=== PATIENT | female | born 1980 | race Caucasian/White ===

== ENCOUNTER → 2023-08-05 08:21 | Outpatient (CLI) | payer BC, SELFPAY ==
--- NOTE | ~2023-08-05 | MM_ITS ---
EXAMINATION: MM screening [facility] BI w bisi HISTORY: Screening mammogram TECHNIQUE: Craniocaudal and mediolateral oblique 3-D tomosynthesis images were obtained and synthetic 2-D images were generated. CAD analysis was submitted and interpreted. COMPARISON: No prior mammogram is available for comparison at this institution. BREAST PARENCHYMAL COMPOSITION: There are scattered areas of fibroglandular density. FINDINGS: There is a circumscribed low-density 5 mm opacity in the central right breast at mid depth. Diagnostic right mammogram and right breast ultrasound examination are recommended. Focal asymmetric density in the lower inner quadrant of the left breast. Diagnostic left mammogram is recommended with ultrasound if required. IMPRESSION: 1. Bilateral asymmetric densities 2. Bilateral diagnostic mammography is recommended, with ultrasound if required BI-RADS Category 0: Incomplete: Needs additional imaging evaluation. Reviewed, dictated and finalized at location A. 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
== END ==
PROVIDERS: PCP Nurse Practitioner Obstetrics & Gynecology; Visit Provider Nurse Practitioner Obstetrics & Gynecology
DX: Z12.31 Encounter for screening mammogram for malignant neoplasm of breast (principal); R92.8 Other abnormal and inconclusive findings on diagnostic imaging of breast
CPT/HCPCS: 77063; 77067

== ENCOUNTER → 2023-10-17 08:18 | Outpatient (CLI) | payer BC, SELFPAY ==
--- NOTE | ~2023-10-17 | MMUS_ITS ---
EXAMINATION: MM diagnostic [facility] BI w bisi, US breast LT limited HISTORY: Bilateral breast asymmetries on screening mammogram TECHNIQUE: Additional 3-D tomosynthesis images of the breasts were performed and synthetic 2-D images were generated. CAD analysis was submitted and interpreted. High resolution limited left breast ultr asound was performed. COMPARISON: 08/05/2023 BREAST PARENCHYMAL COMPOSITION: There are scattered areas of fibroglandular density. FINDINGS: MAMMOGRAPHIC FINDINGS: Right breast: The previously described asymmetry of the right breast is no longer evident. Left breast: An asymmetry is present in the middle third of the lower left breast at the 7:00 locatio n, 10 cm from the nipple on the craniocaudal view which appears to have slightly increased in size si nce the comparison examination. ULTRASOUND: There is no evidence of focal abnormal solid or cystic mass in the vicinity of the mammographic findi ng in question in the left breast. IMPRESSION: 1. Persistent asymmetry of the left breast with possible increase. 2. Stereotactic biopsy is recommended. BI-RADS category 4, suspicious findings. Reviewed, dictated and finalized at location A. 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 Persistent asymmetry of the left breast with possible increase. 2. Stereotactic biopsy is recommended. BI-RADS category 4, suspicious findings.
== END ==
PROVIDERS: PCP Nurse Practitioner Obstetrics & Gynecology; Visit Provider Nurse Practitioner Obstetrics & Gynecology
DX: R92.8 Other abnormal and inconclusive findings on diagnostic imaging of breast (principal)
CPT/HCPCS: 76642; 77062; 77066; G0279

== ENCOUNTER 2023-12-06 12:26 | Outpatient (CLI) | payer BC, SELFPAY ==
--- NOTE | ~2023-12-06 | MM_ITS ---
MM consultation DATE: 12/06/2023 14:16 INDICATION: The patient presented for recommended stereotactic biopsy of a mammographic asymmetry rep orted in the middle third of the lower left breast at 7:00 10 cm from nipple on craniocaudal view. 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 No petite stereotactic biopsy needles were available. Even with the petite stereotactic biopsy needle, this would be challenging from any approach due to i ts relatively superficial position both inferiorly and medially. I explained this to the patient and recommended 6 month diagnostic left mammogram and left breast ult rasound follow-up. I believe that this more conservative approach is prudent given the fact that no ultrasound abnormali ty was identified, and this may simply be benign asymmetric fibroglandular tissue on the mammogram. COMPARISON: October 17, 2023 diagnostic left mammogram and limited left breast ultrasound 08/01/2023 bilateral screening mammogram IMPRESSION: BI-RADS Category 3: Probably benign findings Recommendation: 6 month diagnostic left mammogram and left breast ultrasound follow-up Reviewed, dictated and finalized at Location A. Reviewed, dictated and finalized at location A. IMPRESSION: BI-RADS Category 3: Probably benign findings Recommendation: 6 month diagnostic left mammogram and left breast ultrasound fo llow-up
== END 2023-12-06 12:27 | disposition home or self-care (01) ==
LOC: ANHIMG 12:27
PROVIDERS: PCP Nurse Practitioner Obstetrics & Gynecology; Visit Provider Surgery
DX: R92.8 Other abnormal and inconclusive findings on diagnostic imaging of breast (principal)
CPT/HCPCS: 99199

== ENCOUNTER 2024-05-15 07:47 | Outpatient (CLI) | payer BC, SELFPAY ==
--- NOTE | ~2024-05-15 | MMUS_ITS ---
EXAMINATION: MM diagnostic [facility] LT w bisi, US breast LT complete HISTORY: Follow-up left breast asymmetry TECHNIQUE: Additional 3-D tomosynthesis images of the left breast were performed and synthetic 2-D im ages were generated. CAD analysis was submitted and interpreted. High resolution complete left breast ultrasound was performed. COMPARISON: Comparison to multiple prior studies sequentially, with oldest reviewed study dated 07/26/2023. BREAST PARENCHYMAL COMPOSITION: Not dense: There are scattered areas of fibroglandular density. FINDINGS: MAMMOGRAPHIC FINDINGS: There are no suspicious masses, calcifications or architectural distortion in the left breast to sugg est malignancy. ULTRASOUND: Complete US of all 4 quadrants of the left breast/s and retroareolar region was reviewed. Normal hete rogeneous echotexture without focal solid or cystic mass. IMPRESSION: 1. No evidence for malignancy in the left breast. 2. Routine yearly screening mammogram and regular clinical breast examination are recommended. BI-RADS Category 1: Negative Reviewed, dictated and finalized at location B. IMPRESSION: 1. No evidence for malignancy in the left breast. 2. Routine yearly screening mammogram and regular clinical breast examination a re recommended. BI-RADS Category 1: Negative
== END 2024-05-15 07:48 | disposition home or self-care (01) ==
PROVIDERS: PCP Surgery; Visit Provider Nurse Practitioner
DX: N63.0 Unspecified lump in unspecified breast (principal); R92.2 Inconclusive mammogram
CPT/HCPCS: 76641; 77061; 77065; G0279

== ENCOUNTER 2024-10-26 15:37 | Outpatient (CLI) | payer BC, SELFPAY ==
--- NOTE | ~2024-10-26 | MM_ITS ---
EXAMINATION: MM screening [facility] BI w bisi HISTORY: Screening TECHNIQUE: Craniocaudal and mediolateral oblique 3-D tomosynthesis images were obtained and synthetic 2-D images were generated. CAD analysis was submitted and interpreted. COMPARISON: Comparison to multiple prior studies sequentially, with oldest reviewed study dated 07/14. BREAST PARENCHYMAL COMPOSITION: Not dense: There are scattered areas of fibroglandular density. FINDINGS: There is no evidence of suspicious mass, calcification, or architectural distortion to sugg est malignancy in either breast. There has been no suspicious interval change. IMPRESSION: 1. No mammographic evidence of malignancy. 2. Recommend routine screening mammography in one year. BI-RADS Category 1: Negative Reviewed, dictated and finalized at location B. 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
== END 2024-10-26 15:38 | disposition home or self-care (01) ==
LOC: MICIMG 15:38
PROVIDERS: PCP Nurse Practitioner; Visit Provider Surgery
DX: Z12.31 Encounter for screening mammogram for malignant neoplasm of breast (principal)
CPT/HCPCS: 77063; 77067

== ENCOUNTER 2025-01-16 09:03 | Outpatient (CLI) | payer BC, SELFPAY ==
--- NOTE | 2025-01-16 | ECG_ITS ---
Test Date: 2025-01-16 09:33:45 Measurements Intervals [place] Rate: 77 P: 13 [place]: 142 QRS: 29 QRSD: 77 T: 0 QT: 374 QTc: 424 Interpretive Statements SINUS RHYTHM LOW QRS VOLTAGE IN PRECORDIAL LEADS [QRS DEFLECTION < 1.0 mV IN CHEST LEADS] No previous ECG available for comparison Electronically Signed On 01-16-2025 14:04:22 CDT by Omar Mcelroy M.D.
--- OUTSIDE RECORDS SUMMARY | 2025-01-16 09:27 | XMS_ITS | Data Portability ---
Author Organization [facility] Address [address] [place] [address] [place] [address] Care Team Providers Care Engineering Faculty Name Role Phone MARCELINO CASTILLO Primary Care Provider [phone] KARLOS CHING Primary Care Provider Assessment Encounter Date Assessment Date Assessment LastModified by Organization Details LastModified Time 03/01/2023 03/01/2023 Annual gynecological exam performed. Patient will come back in a year unless there are new symptoms. Not available 03/01/2023 11:07:10 Plan of Treatment Reminders Order Date Submit Date Provider Last Modified By Organization Details Last Modified Time Details Appointments None recorded. Lab None recorded. Referral None recorded. Procedures None recorded. Surgeries None recorded. Imaging US, breast, unilateral - f/u left breast 2023 024 [facility], [address], [place], [address], 4 05:01:05 MAMMO, diagnostic, unilateral 2023 024 [facility], [address], [place], [address], 4 13:08:10 MAMMO, screening, bilateral 2022 023 [facility], [address], [place], [address], 3 08:20:24 Medication Orders Slynd 4 mg (28) tablet 2023 024 [facility] [address] [place], [address], 4 17:07:44 Slynd 4 mg (28) tablet 2023 024 [facility] [address] [place], [address], 4 16:06:41 Patient TargetsNo targets recorded. Patient InstructionsNo instructions recorded. Reason for Referral None Reported. Results Created Date Observation Date Name Description Value Unit Range Abnormal Flag Note LastModifiedBy Organization Detail LastModifiedTime 03/01/20 23 03/01/2023 IMAGE GUIDE D PAP AND HPV REGAR DLESS image guided Pap, HPV regardless of Pap result SEE RESULT S BELOW CASE REPOR T: Cytol ogy Gynec ologi armani Repor t Case: [id number] Autho brenda caraballo Provi mary: Ash Sales Colle cted: 03/01 1544 OSTEOPATHY DOCTOR Order ing Locat ion: [place] [facility] Recei santy: 03/02 0710 First Scree n: Kirk Aguero CT Speci men: Fatmata mann Pap - Image d, Cervi x STATE MENT OF ADEQU ACY: Satis facto ry for evalu ation Trans forma tion zone compo nent prese nt FINAL DIAGN OSIS: Negat nanette for Intra epith elial Janay kang or Roderick medrano (NIL) . Elect javier kumar maria elena d by Kirk Aguero CT on 2022 at 9:40 AM ----- ----- ----- ----- ----- ----- ----- ----- ----- ----- ----- ----- ----- ----- ----- ----- ----- ---- HPV RESUL TS: HPV mRNA E6/E7 : No HPV mRNA Detec adelina NOTE: This high risk HPV mRNA assay detec ts fourt een high- risk HPV types (16, 18, 31, 33, 35, 39, 45, 51, 52, 56, 58, 59, 66, 68) witho ut diffe renti ation . COMME NT: This speci men was revie wed by a Cytot echno logis t and/o r Patho logis t (as indic ated in this repor t) after evalu ation using the Thinp rep Imagi ng Syste m. CLINI ARMANI INFOR MATIO N: Menst rual Statu s: LMP (if appli cable ): Clini armani Histo ry/Pr eviou s Pap: Type of Neopl sreedhar (if appli cable ): Signi fican t Clini armani Findi ngs: Other Histo ry: Hormo tia (if appli cable ): PAP EDUCA LION L NOTE: The Pap Test is a scree mackenzie test with an inher ent false negat nanette rate. Liqui d-bas ed sampl ing may decre ase, but will not elimi juan manuel, false negat nanette resul ts. A negat nanette resul t does not precl ude the prese nce and/o r devel opmen t of disea se, since the prese nce of abnor mal cells in the sampl e depen ds on the locat ion of the lesio n and sampl ing techn ique. Isaura nued regul ar scree mackenzie is the best metho d of cance r preve ntion . If repor adelina cytol ogic findi ng do not corre late with physi armani and/o r histo rical findi ngs, furth er inves tigat ion is recom loan d, as clini woody warra nted. Not Available [facility] (Lab) [address], [place], [address], 03/04/2023 10:45:04 08/06/2008/05/2023 MAMMO , scree mackenzie, bilat eral No observ ation record ed. [facility] [address], [place], [address], 08/10/2023 12:57:06 08/06/20 23 08/05/2023 MAMMO , scree mackenzie, bilat eral No observ ation record ed. [facility] [address], [place], [address], 09/13/2023 12:09:45 10/18/19 24 10/17/2023 MAMMO , diagn ostic , digit al, bilat eral No observ ation record ed. [facility] [address], [place], [address], 11/15/2023 16:37:57 11/28/19 24 10/17/2023 MAMMO , diagn ostic , digit al, bilat eral No observ ation record ed. [email or web address] [facility] [address], [place], [address], 01/04/2024 12:07:37 11/29/19 24 10/17/2023 MAMMO , scree mackenzie, bilat eral No observ ation record ed. [email or web address] [facility] [address], [place], [address], 12/06/2023 17:09:33 05/15/20 24 05/15/2024 MAMMO , diagn ostic , unila teral No observ ation record ed. [facility] [address], [place], [address], 05/16/2024 11:13:10 10/27/1910/26/2024 imagi ng/di agnos tic resul t No observ ation record ed. [facility] [address], [place], [address], 11/06/2024 12:52:48 Result Notes None recorded. Problems Name Problem SNOMED Code Status Onset Date Resolution Date Notes Provider Name and Address Organization Details Recorded Time Specializ ed medical examinati on Active 2012 Gynecologi armani Examinatio n;Recorded Elsewhere: No Locatio n: [facility] rce: EHR Chroni c: N Practice ID: 0001 Billa ble Time: 01:00:00 PM Not Available [facility] 0 21:17:21 Obesity 403191668 Active 2013 Obesity;Re corded Elsewhere: No Locatio n: [facility] rce: EHR Chroni c: N Practice ID: 0001 Billa ble Time: 09:30:00 AM Not Available [facility] 0 21:17:[address] Concept Active 2018 Encntr for blow pit helper exam (general) (routine) w/o abn findings;R ecorded Elsewhere: No Locatio n: [facility] rce: EHR Chroni c: N Practice ID: 0001 Billa ble Time: 09:00:00 AM Not Available [facility] 0 21:17:21 Finding of body mass index 739531196 Active 2018 Body mass index (BMI) 40.0-44.9, adult;Kennedy rded Elsewhere: No Locatio n: [facility] rce: EHR Chroni c: N Practice ID: 0001 Billa ble Time: 09:00:00 AM Not Available [facility] 0 21:17:21 Screening for malignant neoplasm of cervix Active 2011 Screening for malignant neoplasms of the cervix;Rec orded Elsewhere: No Locatio n: [facility] rce: EHR Chroni c: N Practice ID: 0001 Billa ble Time: 05:45:00 PM Not Available [facility] 0 21:17:[address] Concept Active 2015 Encntr for general adult medical exam w/o abnormal findings;R ecorded Elsewhere: No Locatio n: [facility] rce: EHR Chroni c: N Practice ID: 0001 Billa ble Time: 01:00:00 PM Not Available [facility] 0 21:17:21 Problem Notes None recorded. Procedures Surgical History Date Name Laterality Status Provider Name and Address Organization Details Recorded Time Date of Last Mammogram completed Jenna Mendiola [facility] 06/11/2024 16:25:29 Imaging Results Imaging Date Name Status LastModified by [facility] Details LastModified Time 08/05/2023 MAMMO, screening, bilateral completed [facility] [address], [place], [address], 08/10/2023 12:57:06 08/05/2023 MAMMO, screening, bilateral completed [facility] [address], [place], [address], 09/13/2023 12:09:45 10/17/2023 MAMMO, diagnostic, digital, bilateral completed [facility] [address], [place], [address], 11/15/2023 16:37:57 10/17/2023 MAMMO, diagnostic, digital, bilateral completed [email or web address] [facility] [address], [place], [address], 01/04/2024 12:07:37 10/17/2023 MAMMO, screening, bilateral completed [email or web address] [facility] [address], [place], [address], 12/06/2023 17:09:33 05/15/2024 MAMMO, diagnostic, unilateral completed [facility] [address], [place], [address], 05/16/2024 11:13:10 10/26/2024 imaging/diagnos tic result completed [facility] [address], [place], [address], 11/06/2024 12:52:48 Procedure Notes None recorded. Medical Equipment None Reported. Allergies No known drug allergies Medications Name Sig Start Date Stop Date Status Note LastModified by Organization Details LastModified Time promethaz ine-DM 6.25 mg-15 mg/5 mL oral syrup TAKE 5 ML BY MOUTH EVERY 6 HOURS FOR 5 DAYS NEEDED 02/13 completed Not Available Not Available Not Available doxycycli ne hyclate 100 mg capsule TAKE 1 CAPSULE BY MOUTH TWICE DAILY FOR 5 DAYS 03/01 completed Not Available Not Available Not Available clarithro mycin 500 mg tablet TAKE 1 TABLET BY MOUTH TWICE DAILY FOR 7 DAYS 03/01 completed Not Available Not Available Not Available Protonix 20 mg tablet,de layed release take 2 tablet by oral route every day 11/03 completed Prescrib ed Elsewher e: Yes Loca tion: [facility] odify By: katy jacobsunter DateTime : 05/03/20 12 05:45:00 PM Not Available Not Available Not Available omeprazol e 40 mg capsule,d elayed release TAKE 1 CAPSULE BY MOUTH ONCE DAILY active Not Available Not Available No t Available benzonata te 100 mg capsule TAKE 1 CAPSULE BY MOUTH THREE TIMES DAILY NEEDED FOR 15 DAYS 02/13 completed Not Available Not Available Not Available omeprazol e 20 mg capsule,d elayed release take 1 capsule by oral route every day before a meal 03/01 completed Prescrib ed Elsewher e: Yes Loca tion: [facility] odify By: katy jacobsunter DateTime : 11/03/19 18 02:30:00 PM Not Available Not Available Not Available aspirin 81 mg chewable tablet chew 1 tablet by oral route every day active Prescrib ed Elsewher e: Yes Loca tion: [facility] odify By: gamaliel jacobsunter DateTime : 06/26/20 13 01:00:00 PM Not Available Not Available Not Available methylpre dnisolone 4 mg tablets in a dose pack TAKE BY MOUTH DIRECTED ON INSIDE OF PACKAGE 03/01 completed Not Available Not Available Not Available cefdinir 300 mg capsule TAKE 1 CAPSULE BY MOUTH TWICE DAILY FOR 7 DAYS 02/13 completed Not Available Not Available Not Available multivita min capsule take 1 capsule by oral route every day 08/16 completed Prescrib ed Elsewher e: Yes Loca tion: [facility] odify By: katy Diamond ncounter DateTime : 06/26/20 13 01:00:00 PM Not Available Not Available Not Available doxycycli ne hyclate 100 mg tablet TAKE 1 TABLET BY MOUTH TWICE DAILY FOR 7 DAYS 02/13 completed Not Available Not Available Not Available amoxicill in 875 mg-potass ium clavulana te 125 mg tablet TAKE 1 TABLET BY MOUTH TWICE DAILY FOR 5 DAYS 02/13 completed Not Available Not Available Not Available Allergy Relief (loratadi ne) 10 mg tablet active Not Available Not Available Not Available Calcio Kim 500 mg tablet 07/05 completed Prescrib ed Elsewher e: Yes Loca tion: [facility] odify By: violet Diamond ncounter DateTime : 06/26/20 13 01:00:00 PM Not Available Not Available Not Available Flonase active Not Available Not Avail able Not Available Iron (ferrous sulfate) 02/13 completed Not Available Not Available Not Available Daily Vitamins for Women active Not Available Not Available No t Available [place] 3 active Not Available Not Avail able Not Available Seasoniqu e 0.15 mg-30 mcg (84)/10 mcg(7) tablets,3 month dose pack take 1 tablet by oral route every day 11/27 completed Prescrib ed Elsewher e: No Locat ion: [facility] odify By: aleksandra Diamond ncounter DateTime : 08/16/20 16 01:00:00 PM Not Available Not Available Not Available Estroven Maximum Strength active Not Available Not Available Not Available Calcium With Vitamin D3 active Not Available Not Available Not Available Acid Aircraft Armament Mechanic (omeprazo le) 03/01 completed Not Available Not Available Not Available Seasonale (91) 0.15 mg-30 mcg tablets,3 month dose pack TAKE ONE TABLET BY MOUTH ONCE DAILY 08/16 completed Prescrib ed Elsewher e: No Locat ion: [facility] odify By: danyell tz Encou nter DateTime : 09/29/19 16 08:35:52 AM Not Available Not Available Not Available Slynd 4 mg (28) tablet Take 1 tablet every day by oral route. 2023 active Not Available Not Available Not Avai lable Vitals Date Recorded Body height Body mass index (BMI) Body weight Provider Name and Address Organization Details Last Updated DateTime 03/01/2023 157.48 cm 41.9 kg/m2 101613.65 g Kiara Mj [facility] 03/01/2023 11:07:33 Date Recorded Systolic blood pressure Diastolic blood pressure Provider Name and Address Organization Details Last Updated DateTime 03/01/2023 122 mm[Hg] 80 mm[Hg] Brittany Montemayor, [facility]- [address], [place], [address], [facility] 03/01/2023 11:30:06 Date Recorded Body height Body mass index (BMI) Body weight Systolic blood pressure Diastolic blood pressure Provider Name and Address Organization Details Last Updated DateTime 02/14/2024 157.48 cm 41.7 kg/m2 100698.0 6 g 136 mm[Hg] 84 mm[Hg] Alma Timothy [facility] 09:49:58 Date Recorded Body height Body mass index (BMI) Body weight Systolic blood pressure Diastolic blood pressure Provider Name and Address Organization Details Last Updated DateTime 06/11/2024 157.48 cm 42.9 kg/m2 608713.4 9 g 126 mm[Hg] 88 mm[Hg] Jenna Marlena [facility] 16:23:30 Social History Question Answer Notes LastModified by Organizat ion Details LastModified Time Tobacco Smoking Status Never Smoker Kiara Barker null, [facility] 03/01/2023 11:10:19 What Is Your Level Of Alcohol Consumption? Occasional Information not available 03/01/2023 How Many Years Have You Consumed Alcohol? 23 Information not available 03/01/2023 Are You Blind Or Do You Have Difficulty Seeing? No Information not available 03/01/2023 What Is Your Level Of Caffeine Consumption? Moderate Information not available 03/01/2023 How Much Tobacco Do You Chew? None Information not available 03/01/2023 In The 14 Days Before Symptom Onset, Have You Had Close Contact With A Laboratory-confir med COVID-19 While That Case Was Ill? No Information not available 03/01/2023 In The 14 Days Before Symptom Onset, Have You Had Close Contact With A Person Who Is Under Investigation For COVID-19 While That Person Was Ill? No Information not available 03/01/2023 Have You Been To An Area Known To Be High Risk For COVID-19? No Information not available 03/01/2023 Are You Deaf Or Do You Have Serious Difficulty Hearing? No Information not available 03/01/2023 What Type Of Diet Are You Following? SPECIFIC Information not available 03/01/2023 What Is The Highest Grade Or Level Of School You Have Completed Or The Highest Degree You Have Received? 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 No Information not available 03/01/2023 Do You Use Protection During Sex? Always Information not available 03/01/2023 Do You Use Your Seat Belt Or Car Seat Routinely? Yes Information not available 03/01/2023 Do You Have Smoke And Carbon Monoxide Detectors In Your Home? Yes Information not available 03/01/2023 How Much Tobacco Do You Smoke? No Information not available 03/01/2023 Do You Feel Stressed (tense, Restless, Nervous, Or Anxious, Or Unable To Sleep At Night)? [id number] Information not available 03/01/2023 Do You Use Any Illicit Or Recreational Drugs? No Information not available 03/01/2023 Do You Use Sunscreen Routinely? Yes Information not available 03/01/2023 Have You Used IV Drugs? No Information not available 03/01/2023 Sex: Unknown Functional Status Question Answer Note LastModified by Organizat ion Details LastModified Time Are you able to walk? YESWOREST Information not available 03/01/2023 What is your exercise level? Occasional Information not available 03/01/2023 Mental Status None recorded. Family History Relationship Description Onset Age of this Age Resolved Age Notes LastModified by Organization Details LastModified Time Paternal Grandmother Osteoporosis Not available 0 03/01/2023 11:07:47 Maternal Grandmother Osteoporosis Not available 0 03/01/2023 11:07:47 Notes:Father: (AML) leukemia , Hypertension Maternal grandmother: Cancer, colon, polyps Mother: Ovarian Cyst Paternal aunt: Cancer, colon Paternal grandfather: Stroke Paternal grandmother: Uterine, Cancer Medical History Condition Response Allergies (Food, seasonal, environmental ) Y Acid Reflux (GERD) Y Gynecological History Statement/Question Response Abnormal Pap N Date of Last Mammogram 05/15/2024 Date of LMP N On BCP's at Conception? N STIs/STDs N Was last menstrual period normal Y HPV Vaccine N Colposcopy Duration of Flow (days) 4 Current Control Method BCPs Are cycles usually normal Y Date of Last Colonoscopy Frequency of Cycle (Q days) 28 Sexually Active? N Menses Monthly N Date of DEXA bone scan Age of first menstrual cycle 11 Date of Last Pap Smear Sexual Problems? N LMP Definite N Obstetrics History GPAL:G 0 P 0 0 0 0 Past Encounters Encounter ID Performer Location Encounter Start Date Encounter Closed Date Diagnosis/Indication Diagnosis SNOMED-CT Code Diagnosis ICD10 Code Diagnosis Note [id number] Brittany Montemayor [facility] [address] [address] 03/01/2023 10:52:57 03/01/2023 11:44:00 Gynecologic examination 49095346 Z01.419 Suggested Calcium with Vitamin D 1200-1500m g daily. Patient advised to get an annual flu shot in the fall and she could obtain at [facility] or [facility] take care clinic. Also to obtain TDap vaccinatio n if you have not had one in the last 10 years. Recommend yearly mammograms . Encouraged monthly self breast exams. Encourage safe sexual practices, to use condoms and limit partners if not already in a monogamous relationsh ip. Engage in daily exercise of low impact aerobic exercise 45-60 minutes 4-5 times weekly. Avoid tobacco and illicit drugs as well as using moderation with alcohol intake less than 1-2 8 oz beverages daily. This lifestyle behavior pattern will lead to less health conditions and longer life span. If BMI greater than 25 weight watchers or dietary consult advised. All questions have been answered. Patient appears to understand informatio n, but if you have any questions please call or respond to this email. Pap/hpv sent STD Screen declined Genetic Screen discussed Colon Screen PCP Dexa Screen na Routine Labs PCP Screening mammography 24 729893 Z12.31 Body mass index 40+ - severely obese 402163369 Z68.41 PCP [id number] RALPH Torres [facility] [address],[facility] [address] 02/14/2024 09:44:53 02/15/2024 07:55:28 Dysmenorrhea 760565334 N94.6 management options reviewed Discussed all control options in great detail. Pt would like to start POP. She is aware of the risks and benefits. Pt will start her pills on the first day following the start of her period. She is aware it is not effective for control the first month. She is also aware of the importance of taking at the same time every day. Encouraged use of condoms as the pill does not protect against STD's. Will return in 3-4 months for med check. Breast lump 36608535 N63 .0 order given for repeat left breast imagingenc ouraged pt to schedulenu mber given to schedule 6 month f/u with Dr. Fadia kc answered Time spent in visit is a total of 25 mins with at least 50% of visit consisting of counseling and review of plan of care. [id number] Aj De La Garza MD [facility] [address],[facility] [place] [address] 06/11/2024 16:09:46 06/11/2024 17:11:32 Dysmenorrhea 148223625 N94.6 Patient to continue taking Slynd as directed to control painful periods. Patient to call office with any questions or concerns. Health Concerns Section Related Observation LastModified by Organization Detai ls LastModified Time None Recorded Concern Status LastModified by Organization Details LastModified Time None Recorded Advance Directives Directive None Recorded Payers Encounter Date Sequence Insurance Name Policy Number Policy Gong Covered Member ID Gong Member ID Guarantor Name 03/01/2023 1 [place] [id number] 2 Fadi E Sperduto [id number] Fadi E Sperduto 02/14/2024 1 [place] [id number] 2 Fadi E Sperduto [id number] Fadi E Sperduto 06/11/2024 1 [place] [id number] 2 Fadi E Sperduto [id number] Fadi E Sperduto Notes Date Note Type Note Provider Name and Address Organization Details Recorded Time 03/01/2023 text/html Annual GYNReport ed bypatient.History:no gynecologic complaints Menstrual cycle:Normal menses Urinary symptoms:No hematuria; No incontinence Vulva:No genital lesion Vagina:Normal vaginal discharge Breast:No breast pain; No breast lump; No nipple discharge Current Contraception: control not practiced Sexual complaints:No sexual complaints; No pain during intercourse; Normal libido Menopausal Symptoms:No menopausal symptoms; Normal vaginal lubrication Psychological symptoms:No depression; No anxiety; No PMDD Preventive measures:Encourage self breast examination; Encourage regular exercise; Encourage no tobacco use; Encourage regular mammograms starting age 40; Followed with yearly pap smears; Needs to schedule mammogram; Needs to schedule colonoscopy (PCP) Brittany Montemayor, [facility]- [address], [place], [address], [facility] 03/01/2023 11:31:37 02/14/2024 text/html 43yo [id number] for consulthas noticed first 2 days of her periods are more painful over the past year. Monthly periods, lasting 4-5 days. Normal flow, cramping on the first 2 days. Would like to discuss management options for this.Occasional hot flashesnot currently SALMP 02/06/2024 screening mammogram done 07/2023: bi-rads 0diagnostic mammogram 10/17 : persistent asymmetry in left breast, biopsy recommended.Saw Dr. Phillips, biopsy attempted on 11/21/2023 but no sample obtained. Recommendation per consult note is to repeat diagnostic left mammogram with left u/s in 6 months (around 04/2024). no changes to this breast that she has noticedshe denies any lumps/pain/or nipple discharge RALPH Torres [address], [place], [address], [facility] 02/14/2024 16:14:43 06/11/2024 text/html Patient here for medication follow-up. Patient was prescribed Slynd three months ago to help control painful periods, and also to help with perimenopause symptoms of hot flashes. Patient states that she does not have painful periods anymore and only spots occasionally. Patient states that her hot flashes have decreased in frequency as well. Patient would like to continue taking Slynd. LORIN RAO NP [address], [place], [address], [facility] 06/11/2024 17:10:11 OBGyn Episode No OBEpisode recorded.
== END 2025-01-16 09:04 | disposition home or self-care (01) ==
LOC: ANHLAB 09:06 → ANHCARD 09:06
PROVIDERS: PCP Family Medicine; Visit Provider Podiatrist Foot & Ankle Surgery
DX: Z01.818 Encounter for other preprocedural examination (principal)
CPT/HCPCS: 93005